=== PATIENT | male | born 1980 | race Caucasian/White ===

== ENCOUNTER 2018-01-11 21:29 | Emergency (ER) | payer SELFPAY ==
[2018-01-11 21:37] VITALS: BP 132/74
--- NOTE | 2018-01-11 21:39 | EDPHY ---
General Time Seen by Provider: 01/11/18 21:34 Narrative: CHIEF COMPLAINT: Intoxicated HISTORY OF PRESENT ILLNESS: Patient presents by [employer]/EMS on an arc hold due to alcohol intoxication. He admits to drinking heavily today. He will not tell me how much or what type of alcohol. He is well-known to this emergency department for same complaint in scenario. He denies any complaints of any kind. No headache. No trauma. No chest pain. He is reportedly too intoxicated to ambulate was [place] bridge. No other associated complaints or modifying factors. REVIEW OF SYSTEMS: Ten systems reviewed and are negative unless otherwise noted in the HPI PCP: [facility] SPECIALISTS: None PAST MEDICAL HISTORY: Alcoholism PAST SURGICAL HISTORY: No recent surgeries SOCIAL HISTORY: Currently homeless. Drinks alcohol daily FAMILY HISTORY: Noncontributory EXAMINATION General Appearance: Alert, no distress. Unkempt. Well-developed well- nourished Head: normocephalic, atraumatic Eyes: Pupils equal and round, no conjunctival pallor or injection. No nystagmus ENT, Mouth: Mucous membranes moist. Poor dentition but airway is widely patent Neck: Normal inspection, supple, non-tender Respiratory: Lungs are clear to auscultation Cardiovascular: Regular rate and rhythm. No murmur Gastrointestinal: Abdomen is soft and nontender Back: non-tender, no bony abnormalities Neurological: GCS 15. A&O, nonfocal, no pronator drift. Strength is symmetric in all 4 limbs. Skin: Unclean but grossly intact. Extremities: Nontender, no pedal edema Psychiatric: Mood and affect normal DIFFERENTIAL DIAGNOSES: Including but not limited to acute alcohol intoxication, alcohol abuse, alcohol dependency MDM: 9:35 p.m. Acute alcohol intoxication with no complaints otherwise. The patient arrives on an arc hold by [employer]. He is too intoxicated to ambulate at this time, thus we will monitor him until he is able to do so. Vital signs are within normal limits and he is in no acute distress. 11:15 p.m. Patient has ambulated in the emergency depart without difficulty. At this time he will be discharged to the [facility]. [employer] will be contacted to take him as he is on an arc hold. He is awake alert no acute distress. SUPERVISION: This patient was independently evaluated without direct involvement of or examination by the attending physician. - Objective Vital Signs: Initial Vital Signs Temperature (C) 97.9 F 01/11/18 21:33 Heart Rate 77 01/11/18 21:33 Respiratory Rate 16 01/11/18 21:33 Blood Pressure 132/74 H 01/11/18 21:33 O2 Sat (%) 91 L 01/11/18 21:33 O2 Delivery Mode Room Air Allergies/Adverse Reactions: No Known Allergies Allergy (Unverified 01/11/18 21:33) Medications Given: Discontinued Medications Chlordiazepoxide (Librium 25 Mg Prepack#6) 1 btl TAKEHOME EDNOW ONE Stop: 01/11/18 23:29 Last Admin: 01/11/18 23:33 Dose: 1 btl Departure - Departure Disposition: Home, Routine, Self-Care Clinical Impression: Acute alcohol intoxication Qualifiers: Complication of substance-induced condition: uncomplicated Qualified Code(s): F10.929 - Alcohol use, unspecified with intoxication, unspecified Condition: Good Instructions: Chlordiazepoxide/Clidinium (By mouth), Alcohol Intoxication (ED) , Abuse of Alcohol (ED) Additional Instructions: 1. You have been placed on an [facility] hold by [employer]. He will be transferred there by them Referrals: [facility],. [Clinic] - As per Instructions [facility] Detox 24 Hours [Outside] - As per Instructions
[2018-01-11] MEDS ORDERED: CHLORDIAZEPOXIDE 25MG PREPK#6 BTL TAKEHOME ONE (23:28)
== END 2018-01-11 23:34 | disposition home or self-care (01) ==
DX: F10.929 Alcohol use, unspecified with intoxication, unspecified (principal)

== ENCOUNTER 2018-01-14 11:53 | Emergency (ER) | payer SELFPAY ==
--- NOTE | 2018-01-14 11:58 | EDPHY ---
H & P Smoking Status: Never smoked <Vasquez Villalpando - Last Filed: 01/14/18 14:38> <Riki Pan - Last Filed: 01/14/18 15:24> Time Seen by Provider: 01/14/18 11:53 HPI/ROS: CHIEF COMPLAINT: Decreased level of alertness, unable to walk HISTORY OF PRESENT ILLNESS: Brought in by EMS found on a street corner with decreased level of alertness on unable to walk. Patient admits to drinking vodka, has no other medical complaints. No trauma. REVIEW OF SYSTEMS: Eye: no change in vision ENT: no sore throat Cardiac: no chest pain or syncope Pulmonary: no cough or SOB Abdomen: no vomiting, diarrhea, abdominal pain Musculoskeletal: no back pain Skin: no rash Neuro: no headache Constitutional: no fever : no urinary symptoms A comprehensive 10 point review of systems is otherwise negative aside from elements mentioned in the history of present illness. PAST MEDICAL HISTORY: Alcoholism Social history: Recent alcohol vodka intake General Appearance: Patient is alert but speech is slow and slurred. Follows commands. Eyes: No scleral icterus. Pupils equal and reactive. ENT, Mouth: Normal mucous membranes. Respiratory: Normal respiratory effort, breath sounds equal, lungs are clear to auscultation. Cardiovascular: Regular rate and rhythm. Gastrointestinal: Abdomen is soft and non tender. Neurological: Patient will respond appropriately to commands but is slow to respond and has slurred speech. Moves all 4 extremities, face is symmetric. Skin: Warm and dry, no rashes. No laceration or bruising Musculoskeletal: No peripheral edema. No deformity or tenderness. Psychiatric: Not agitated. Emergency Department course/MDM: Pre-hospital glucose 130. Clinical presentation consistent with self-described alcohol ingestion. Plan for serial examinations. 1500: Signed out to Maxim with plan for discharge to detox when clinically not intoxicated. (Vasquez Villalpando) Constitutional: Initial Vital Signs Temperature (C) 36.7 C 01/14/18 11:53 Heart Rate 106 H 01/14/18 11:53 Respiratory Rate 16 01/14/18 11:53 Blood Pressure 120/81 H 01/14/18 11:53 O2 Sat (%) 94 01/14/18 11:53 O2 Delivery Mode Room Air Allergies/Adverse Reactions: No Known Allergies Allergy (Unverified 01/11/18 21:33) Home Medications: Medication Instructions Recorded traZODone 01/14/18 Medical Decision Making <Vasquez Villalpando - Last Filed: 01/14/18 14:38> <Riki Pan - Last Filed: 01/14/18 15:24> Other Provider: 15:00 I assumed care of this patient at shift change. 15:05 Reassessed patient. He has reportedly failed his most recent road test attempt and is currently sleeping. I serially examined this patient since the patient's arrival here in the emergency department. The patient continues to become more and more sober with each examination. 15:30 I serially questioned the patient and the patient's story given initially has not changed. The patient still denies any trauma, any head injury, and any illicit drug use. At this point, the patient is walking the department freely and is clinically sober. We're discharging the patient to the [facility] in stable condition. (Riki Pan) Departure <Vasquez Villalpando - Last Filed: 01/14/18 14:38> <Riki Pan - Last Filed: 01/14/18 15:24> - Departure Disposition: Home, Routine, Self-Care Clinical Impression: Alcoholic intoxication Qualifiers: Complication of substance-induced condition: uncomplicated Qualified Code(s): F10.920 - Alcohol use, unspecified with intoxication, uncomplicated Condition: Good Instructions: Alcohol Intoxication (ED) Additional Instructions: Please refrain from abusing alcohol. Return to the emergency department for fever, uncontrollable vomiting, confusion , headache, or other worsening of condition. Referrals: [facility],. [Clinic] - As per Instructions [facility] Detox 24 Hours [Outside] - As per Instructions Report Scribed for: Riki Pan Report Scribed by: Mercedes Alarcon Date of Report: 01/14/18 Time of Report: 15:11 <Riki Pan - Last Filed: 01/14/18 15:24>
[2018-01-14] MEDS ORDERED: CHLORDIAZEPOXIDE 25MG PREPK#6 BTL TAKEHOME ONE (15:45)
[2018-01-14 19:18] VITALS: BP 100/58
== END 2018-01-14 19:14 | disposition home or self-care (01) ==
LOC: EDUNIT#
DX: F10.920 Alcohol use, unspecified with intoxication, uncomplicated (principal)